=== PATIENT | female | born 1995 | race Caucasian/White ===

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

== ENCOUNTER 2017-04-25 14:30 | Emergency (ER) | payer OTHER ==
[~2017-04-25] VITALS: Ht 167.6 cm; Wt 59.2 kg
[2017-04-25 14:39] VITALS: BP 102/68; PULSE 80; RESP 16; O2SAT 100
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
[2017-04-25] MEDS ORDERED: no home medications (15:04)
[2017-04-25] MEDS ORDERED: Trimethoprim-Sulfa 160 mg-800 mg Tablet PO ONE (15:05)
[2017-04-25] MEDS ORDERED: Mupirocin 2% 22 Gm Ointment TOPICAL ONE (15:05)
--- NOTE | 2017-04-25 16:54 | NUR ---
patient's mother returned to the ER for discharge instructions and prescriptions. I reviewed discharge instructions, medication prescriptions and follow-up care with patient's mother. she verbalized understanding and agreed with plan of care.
== END 2017-04-25 16:05 | disposition home or self-care (01) ==
LOC: SED 14:30
DX: L98.8 Other specified disorders of the skin and subcutaneous tissue (principal); L20.81 Atopic neurodermatitis; F17.210 Nicotine dependence, cigarettes, uncomplicated; J45.909 Unspecified asthma, uncomplicated; F12.10 Cannabis abuse, uncomplicated; Z59.0 Homelessness